=== PATIENT | female | born 1985 | race African-American/Black ===

== ENCOUNTER 2019-09-25 03:21 | Emergency (ER) | payer MEDICAID ==
[~2019-09-25] VITALS: Ht 167.6 cm; Wt 145.1 kg
--- NOTE | 2019-09-25 03:25 | NUR ---
Pt BIB [id number] from [facility], pt is homeless/Covid + who is currently quarantined. Per paramedics, they are bringing patient after 911 call due to headache and R eye pain/redness. Covid 19 precautions followed. Pt is AO x 4. Per patient, she has been having this pain for 2 days now with eyes hurting. Dr. Biggs also present at bedside for MSE and discussed plans of care. Pt agreed. No other complaints at this time. Does not appear to be in any acute distress. Respirations even and unlabored. Saturating at 100% on RA. All fall and safety precautions maintained.
--- NOTE | 2019-09-25 03:29 | NUR ---
Dr. Biggs at bedside for MSE.
[2019-09-25] MEDS ORDERED: IBUP-1955 PO (03:38)
[2019-09-25] MEDS ORDERED: ESCI10TA PO (03:38)
[2019-09-25] MEDS ORDERED: ACET325T53 PO (03:38)
[2019-09-25] MEDS ORDERED: GABA-532 PO (03:38)
[2019-09-25] MEDS ORDERED: DOCU-141 PO (03:38)
[2019-09-25] MEDS ORDERED: TRAZ-182 PO (03:38)
[2019-09-25] MEDS ORDERED: ONDANSETRON ODT 4 MG TAB.RAPDIS SL ONE (03:45)
[2019-09-25] MEDS ORDERED: HYDROCODONE/APAP 10-325 MG TABLET PO ONE (03:45)
[2019-09-25] MEDS ORDERED: CLONIDINE HCL 0.1 MG TABLET PO ONE (03:45)
[2019-09-25] MEDS ORDERED: HYDROCODONE/APAP 10-325 MG TABLET ONE (03:48)
[2019-09-25] MEDS ORDERED: ONDANSETRON ODT 4 MG TAB.RAPDIS ONE (03:48)
--- NOTE | 2019-09-25 03:50 | NUR ---
Pt tolerated PO meds well, agreed with DC instructions. Patient provided with blanket to relax and made aware that her transportation needs to be arranged. Contacted [facility] [phone] . S/W latisha. After giving patient's information, she said that they are unable to give transporation and [facility] must be contacted directly. Will try to contact [facility] and other ambulance companies.
--- NOTE | 2019-09-25 04:41 | NUR ---
All [employer] numbers online unable to be reached, says it is after business hours. Contacted nearby ambulance providers and so far, if insurance clears, they would have a latest trip of 0900. Called [employer] back and S/w ashley [phone] . Informed her of the situation that their contact number is the only one I can contact for health net transportation, and no one is able to take patient's insurance and she needs transportation. Ashley is currently reviewing patient's insurance information to be able to direct me to the right person.
--- NOTE | 2019-09-25 04:44 | NUR ---
Pt is currently sleeping in the room. Does not appear to be in active distress. Side rails up x 1. Bed locked in place.
--- NOTE | 2019-09-25 04:50 | NUR ---
After the hold, Ashley from [facility] was able to arrange for transportation for patient with Trip # [id number]. According to her, we still have to wait for callback for ETA. Pt is sleeping in the room. Will keep her update once she wakes up.
[2019-09-25 05:00] VITALS: BP 137/81
--- NOTE | 2019-09-25 05:23 | NUR ---
Received call from [facility] (Amanda) that the soonest transporation they can arrange will come between 0900 to 0930 and it will be [facility].
--- NOTE | 2019-09-25 06:30 | NUR ---
Pt arousable from sleep. Made aware of the running ETA of the ambulance. Provided patient with additional pillow for comfort. Appears to be in stable condition at this time. Denies pain and discomfort. Stable condition. Pt went back to sleep.
--- NOTE | 2019-09-25 07:20 | NUR ---
Patient is asleep, easily arousable, denies any discomfort@this time. Ambulance ride arranged by previous shift RN Carrie. Breakfast tray was ordered.
--- NOTE | 2019-09-25 09:37 | NUR ---
[facility] unit#[id number] is here. Hands off report given to metal bed assembler and to EMT Vianney Pfeiffer. Nursing hands off report given to Jeff Sni and to patient as well. Patient was given written and verbal discharge instructions. Patient verbalizes understanding and compliance of instructions. Patient is ambulatory with steady gait. Patient given list of available shelters in surrounding area. Patient will go to [facility] per patient's request and her previous senior care/home.
== END 2019-09-25 09:40 | disposition home or self-care (01) ==
LOC: ER 03:24
DX: H11.31 Conjunctival hemorrhage, right eye (principal); R51 Headache; I10 Essential (primary) hypertension; F17.200 Nicotine dependence, unspecified, uncomplicated; U07.1 COVID-19
CPT/HCPCS: A4663; Q0162

== ENCOUNTER 2019-09-29 21:44 | Emergency (ER) | payer MEDICAID ==
[~2019-09-29] VITALS: Ht 172.7 cm; Wt 160.3 kg
[~2019-09-29 21:44] MED LIST: ACET325T53 PO; DOCU-141 PO; ESCI10TA PO; GABA-532 PO; IBUP-1955 PO; TRAZ-182 PO
--- NOTE | 2019-09-29 21:59 | NUR ---
Dr. Pierre at bedside for MSE.
[2019-09-29] MEDS ORDERED: IBUPROFEN 800 MG TABLET PO ONE (22:30)
[2019-09-29] MEDS ORDERED: HYDROCODONE/APAP 5-325MG TABLET PO ONE (22:30)
[2019-09-29] MEDS ORDERED: HYDROCODONE/APAP 5-325MG TABLET ONE (22:34)
[2019-09-29] MEDS ORDERED: IBUPROFEN 800 MG TABLET ONE (22:34)
--- NOTE | 2019-09-29 23:58 | NUR ---
Received Taxi Voucher from [employer], called [facility] to send patient back to [facility], eta 30 min.
--- NOTE | 2019-09-30 00:05 | NUR ---
Patient given written and verbal discharge instructions. Patient verbalizes understanding of instructions. Patient is ambulatory with steady gait. Refuses offer of snf placement. Patient given list of available shelters in surrounding area. Pt provided with sandwich and juice per patient request, VSS, no acute signs of distress, all belongings taken, Patient has taxi voucher on hand, awaiting taxi ride. Patient refused all other services at this time.
[2019-09-30 00:16] VITALS: BP 98/43
== END 2019-09-30 00:16 | disposition home or self-care (01) ==
LOC: ER 21:45
DX: G43.909 Migraine, unspecified, not intractable, without status migrainosus (principal); F17.210 Nicotine dependence, cigarettes, uncomplicated; R00.0 Tachycardia, unspecified; Z59.0 Homelessness; F31.9 Bipolar disorder, unspecified; E11.9 Type 2 diabetes mellitus without complications; Z79.899 Other long term (current) drug therapy
CPT/HCPCS: A4663